=== PATIENT | female | born 1970 | race Caucasian/White ===

== ENCOUNTER 2017-10-23 16:34 | Emergency (ER) | payer BC ==
[2017-10-23] MEDS: traMADol 50 MG TAB PO (17:09)
== END 2017-10-23 18:58 | disposition home or self-care (01) ==
LOC: FTE 16:34
DX: S99.911A Unspecified injury of right ankle, initial encounter (principal); X58.XXXA Exposure to other specified factors, initial encounter; Y92.9 Unspecified place or not applicable
CPT/HCPCS: 29515; 73510; 73562; 73610-RT; 73630; 99283-25